=== PATIENT | female | born 1975 | race Caucasian/White ===

== ENCOUNTER 2016-06-28 19:56 | Inpatient (IN) | payer OTHER ==
[~2016-06-28] VITALS: Ht 175.3 cm; Wt 68.0 kg
--- NOTE | ~2016-06-28 | 2DMMODE ---
[facility] [id number] [place] [address] 2 D/M-MODE ECHOCARDIOGRAM Name: YUE VINCENT Room #: 463-P ADM IN M.R.#: [id number] Admission: 06/28/16 Attend Phys: Alyssa Antony Discharge: Date of : 75 Date of Service: 06/29/16 1439 Report #: [id number] THIS REPORT FOR: //name// APPROVED REPORT Study performed: 06/29/2016 13:30:11 EXAM: Comprehensive 2D, Doppler, and color-flow Echocardiogram Patient Location: Echo lab Room #: 463 Blood Pressure: 99/51 mmHg HR: 57 bpm Other Information Study Quality: Good Indications CVA/TIA Echo Enhancing Agent Indication: Rule out Shunt Agent/Amount Used: Agitated Saline 7 cc 2D Dimensions RVDd: 23.88 mm LVEF(%): 63.90 (>50%) IVSd: 7.55 (7-11mm) LVOT Diam: 19.74 (18-24mm) LVDd: 50.85 mm PWd: 7.23 (7-11mm) Ascending Ao: 27.31 (22-36mm) LVDs: 33.08 (25-40mm) Aortic Root: 29.88 mm IVC: 13.00 mm Schreiber's LVEF: 63.90 % Volumes Left Atrial Volume (Systole) Single Plane 4CH: 34.17 mL Single Plane 2CH: 36.60 mL LA ESV Index: 23.00 mL/m2 Aortic Valve AoV Peak Joshua.: 1.11 m/s AO Peak Gr.: 4.94 mmHg LVOT Max P.07 mmHg LVOT Max V: 1.13 m/s [facility] [place] [address] 2 D/M-MODE ECHOCARDIOGRAM Name: YUE VINCENT Room #: 463-P ADM IN [facility].#: [id number] Admission: 06/28/16 Attend Phys: Alyssa Antony Discharge: Date of : 75 Date of Service: 06/29/16 1439 Report #: [id number] Mitral Valve E/A Ratio: 3.1 MV Decel. Time: 195.38 ms MV E Max Joshua.: 1.05 m/s MV A Joshua.: 0.34 m/s MV PHT: 56.66 ms Pulmonary Valve PV Peak Joshua.: 0.93 m/s PV Peak Gr.: 3.46 mmHg Pulmonary Vein P Vein S: 28.8 m/s P Vein D: 43.0 m/s P Vein A Dur.: 19.3 m/s Tricuspid Valve RAP Estimate: 5.00 mmHg Left Ventricle The left ventricle is normal size. There is normal LV segmental wall motion. There is normal left ventricular wall thickness. The left ventricular systolic function is normal. The left ventricular ejection fraction is within the normal range. LVEF is 60-65%. Left ventricular filling pattern is normal for age. Right Ventricle The right ventricle is normal size. The right ventricular systolic function is normal. Atria The left atrium size is normal. The right atrium size is normal. Aortic Valve The aortic valve is normal in structure. No aortic regurgitation is present. There is no aortic valvular stenosis. Mitral Valve The mitral valve is normal in structure. There is no mitral valve regurgitation noted. No evidence of mitral valve stenosis. Tricuspid Valve The tricuspid valve is normal in structure. There is no tricuspid valve regurgitation noted. Pulmonic Valve The pulmonary valve is normal in structure. [place] [id number] 2 D/M-MODE ECHOCARDIOGRAM Name: YUE VINCENT Room #: 463-P [facility] IN .R.#: [id number] Admission: 06/28/16 Attend Phys: Alyssa Antony Discharge: Date of : 75 Date of Service: 06/29/16 1439 Report #: [id number] valvular regurgitation. Great Vessels The aortic root is normal in size. IVC is normal in size and collapses >50% with inspiration. Pericardium There is no pericardial effusion. <Conclusion> The left ventricle is normal size. LVEF is 60-65%. The aortic valve is normal in structure. The mitral valve is normal in structure. The tricuspid valve is normal in structure. <ELECTRONICALLY SIGNED> By: Martinez Gandara MD 06/29/16 1439 1439 1439 Martinez Gandara MD /INF
[2016-06-28 20:53] VITALS: BP 103/59
[2016-06-28 21:00] VITALS: BP 103/59
[2016-06-28 21:18] LABS: HEMATOCRIT 41.9 % (37.0-47.0); HEMOGLOBIN 14.1 gm/dL (12.0-15.0); MCH 30.5 pg (26.0-34.0); MCHC 33.6 g/dL (28.0-37.0); MCV 90.8 fL (80.0-100.0); RBC 4.61 mil/uL (4.20-5.00); RDW 13.4 % (10.5-14.5); WBC 10.1 thou/uL (4.0-11.0)
[2016-06-28] MEDS ORDERED: XANAX1 MG PO (21:25)
[2016-06-28 21:26] LABS: CALCIUM 7.9 mg/dL (8.5-10.1); CREATININE 0.7 mg/dL (0.6-1.0); POTASSIUM 3.4 mmol/L (3.5-5.1)
[2016-06-28 21:31] LABS: ALBUMIN 3.7 g/dL (3.4-5.0); TOTAL BILIRUBIN 0.3 mg/dL (<0.1-1.0); TOTAL PROTEIN 6.8 g/dL (6.4-8.2)
[2016-06-28 23:29] VITALS: BP 101/54
[2016-06-29] VITALS (8 sets, daily range): BP systolic 85–103; BP diastolic 44–64
[2016-06-29 06:11] LABS: CHOLESTEROL 140 mg/dL (<200); HDL CHOLESTEROL 40 mg/dL (>40); LDL CHOLESTEROL 87 mg/dL (<100); POTASSIUM 3.7 mmol/L (3.5-5.1); TC:HDL 3.5 Ratio (Not establshd); TRIGLYCERIDE 67 mg/dL (<150); VLDL 13 mg/dL (<40)
[2016-06-29 06:37] LABS: TSH 2.481 uIU/mL (0.358-3.740)
[2016-06-29 08:49] LABS: AMP/METHAMP Negative (Negative); BARBITURATES Negative (Negative); BENZODIAZEPINES POSITIVE (Negative); COCAINE Negative (Negative); METHADONE Negative (Negative); OPIATES Negative (Negative); PCP Negative (Negative); THC Negative (Negative)
[2016-06-29] MEDS ORDERED: ASPIR 8181 MG PO (15:27)
== END 2016-06-29 16:02 | disposition home or self-care (01) | DRG 69 ==
LOC: 4W 19:56
PROVIDERS: Nurse Practitioner
DX: G45.9 Transient cerebral ischemic attack, unspecified (principal); F41.9 Anxiety disorder, unspecified; F43.10 Post-traumatic stress disorder, unspecified; F17.210 Nicotine dependence, cigarettes, uncomplicated; E87.6 Hypokalemia; R20.0 Anesthesia of skin; F12.90 Cannabis use, unspecified, uncomplicated; F15.90 Other stimulant use, unspecified, uncomplicated; G43.909 Migraine, unspecified, not intractable, without status migrainosus; Z88.6 Allergy status to analgesic agent; Z79.82 Long term (current) use of aspirin
CPT/HCPCS: 10045